=== PATIENT | male | born 1975 | race Two or more races ===

== ENCOUNTER 2016-07-01 17:27 | Emergency (ER) | payer BC ==
[~2016-07-01] VITALS: Ht 162.6 cm; Wt 72.6 kg
[2016-07-01] MEDS ORDERED: Norco 5mg/325mg tab ORAL ONE (18:00)
[2016-07-01] MEDS ORDERED: IBUPROFEN600 MG ORAL (19:03)
[2016-07-01] MEDS ORDERED: NORCO 5-325 TA1 EAC1 ORAL (19:03)
[2016-07-01 19:12] VITALS: BP 132/81
--- NOTE | 2016-07-01 20:59 | Emergency Room Report ---
History of Present Illness General Chief Complaint: Lower Extremity Injury Source: Patient (TIM LITTLE) Present Illness HPI The patient is a 40-year-old male presenting for left ankle pain which began today. The patient states that he was walking his dog, tripped, and felt the left ankle folded underneath him. Pain is described as a 10 out of 10 dull ache and does not radiate from the ankle. The patient denies any numbness or tingling. He is unsure if he has fractured this ankle in the past. The patient states he is unable to bear any weight on this foot. Pain worse with touch. He denies any other symptoms including N, V, F, chills, rash, calf pain (TIM LITTLE) Allergies: Coded Allergies: No Known Allergies (Unverified , 07/01/16) Patient History Past Medical History: see triage record Pertinent Family History: none Reviewed Nursing Documentation: PMH: Agreed, PSxH: Agreed (TIM LITTLE) Nursing Documentation-PMH Past Medical History: No History, Except For (TIM LITTLE) Review of Systems All Other Systems: negative except mentioned in HPI (TIM LITTLE) Physical Exam Vital Signs Date Time Temp Pulse Resp B/P Pulse Ox O2 Delivery O2 Flow Rate FiO2 07/01/16 17:45 98.4 112 16 135/85 100 Room Air Sp02 EP Interpretation: reviewed, normal General Appearance: no apparent distress, alert, GCS 15, non-toxic Head: normocephalic, atraumatic Eyes: bilateral eye PERRL, bilateral eye normal inspection ENT: hearing grossly normal, normal pharynx, no angioedema, normal voice Neck: full range of motion, supple/symm/no masses Musculoskeletal: decreased range of motion, swelling, tender - diffusely over ankle Neurologic: alert, oriented x3, responsive, motor strength/tone normal, sensory intact, speech normal Psychiatric: judgement/insight normal, memory normal, mood/affect normal, no suicidal/homicidal ideation Skin: normal color, no rash, warm/dry, well hydrated Lymphatic: no adenopathy (TIM LITTLE) Procedures Splinting Splinting : Consent: Verbal Location: L ankle Hand-Made Type: plaster Splint: posterior long Pre-Proc Neuro Vasc Exam: normal Post-Proc Neuro Vasc Exam: normal Patient Tolerated: Well Complications: None (TIM LITTLE) Medical Decision Making PA Attestation Dr. Dominguez is my supervising physician. Patient management was discussed with my supervising physician (TIM LITTLE) Diagnostic Impression: Primary Impression: Closed bilateral malleolar fractures ER Course The patient is a 40-year-old male presenting for left ankle pain which began today Ddx considered include but not limited to sprain/strain, fracture, contusion, dislocation Physical exam: No apparent distress Left ankle: There is diffuse nonpitting edema. Limited active range of motion due to pain. There is ecchymosis to medial and lateral malleoli with tenderness to palpation. SILT DP pulse 2+ X-ray of the ankle shows a slight lateral malleoli fracture with soft tissue swelling The patient is given pain medication and will be placed in a short leg posterior with sugar tongue splint. Crutches are provided The patient is advised that he will should not weight bear and needs to followup with PMD as well as orthopedics as soon as possible. Patient was informed he may need surgery. ER precautions are given (TIM LITTLE) ER Course I evaluated this patient in the ED at [facility] with my advanced practice provider (Physician Industrial Technician) colleague, who practices under my general supervision. My impressions concur with the advanced practice provider in regards to their obtained history of present illness, physical exam, general management, diagnosis, and disposition. In particular, I agree with PA-obtained interpretation of imaging, rhythm strip. For the evening and overnight shifts, we do not have the benefit of an in-house Radiologist to review xrays so our interpretation may be limited. Patients are to be discharged only with normal vital signs (or if we discussed a particular exception), a plan for follow-up care, and understand to return to the ED for worsening symptoms. Please see midlevel healthcare providers note for further details. (CHONG DOMINGEUZ M.D.) Other X-Ray Diagnostic Results Other X-Ray Diagnostic Results : X-Ray Ordered: L ankle Date: Jul 01, 2016 EP Interpretation: Yes Findings: no dislocation, other - bi mal fracture with STS Number of Views: 3 PA Scribe Text I am acting as scribe for my supervising physician. My supervising physician's interpretation of the L Ankle xrays are there are There are bimalleolar fracture 's with soft tissue swelling (TIM LITTLE) Last Vital Signs Date Time Temp Pulse Resp B/P Pulse Ox O2 Delivery O2 Flow Rate FiO2 07/01/16 19:16 98.4 07/01/16 19:12 76 17 132/81 100 Room Air Status: improved (TIM LITTLE) Disposition: HOME, SELF-CARE Condition: Improved Scripts Hydrocodone Bit/Acetaminophen 5-325* (NORCO 5-325 TABLET*) 1 Each Tablet 1 TAB ORAL Q6HR Y for For Pain, #10 TAB Prov: TIM LITTLE 07/01/16 Ibuprofen* (MOTRIN*) 600 Mg Tablet 600 MG ORAL Q8H Y for For Pain, #30 TAB 0 Refills Prov: TIM LITTLE.Norma 07/01/16 Referrals: BRENNON CHAUDHRY (PCP) Patient Instructions: Ankle Sprain, Ankle Fracture, Cast or Splint Care Additional Instructions: I discussed my findings with the patient. All questions and concerns have been answered. Treatment and medication compliance have been addressed. I advised the patient that they need to follow up with PMD in 3-5 days. Return to ED if pain remains or worsens, numbness or tingling occurs, new rash is noticed, fever is noticed, or if needed for any reason. Patient verbalized understanding of discharge instructions. The patient is advised that he needs to follow up with orthopedic surgery TIM LITTLE Jul 01, 2016 20:59 CHONG DOMINGUEZ M.D. Jul 03, 2016 20:56
--- NOTE | 2016-07-02 12:27 | Diagnostic Imaging Report ---
Indications: Fall, left ankle injury and pain Technique: 3 views left ankle Findings: Comparison: None Oblique fracture distal fibular diaphysis and metaphysis at and above the ankle joint. Distal fragment demonstrates significant posterior displacement. Transverse fracture through base of minimal LS, mildly distracted. Longitudinal fracture through posterior malleolus, distal fragment demonstrating 1 mm posterior inferior displacement. Asymmetric widening of tibiotalar joint. Surrounding soft tissue swelling. IMPRESSION: Trimalleolar fracture as described Ankle joint disruption
[2016-07-09] MEDS ORDERED: SAXENDA3 MG/0.5 M SQ (14:40)
[2016-07-09] MEDS ORDERED: TRAZODONE HCL50 MG ORAL (14:41)
[2016-07-09] MEDS ORDERED: PANTOPRAZOLE SO40 MG ORAL (14:42)
[2016-07-09] MEDS ORDERED: DICYCLOMINE HCL10 MG PO (14:42)
[2016-07-09] MEDS ORDERED: VENLAFAXINE HC150 MG ORAL (14:44)
== END 2016-07-01 19:25 | disposition home or self-care (01) ==
LOC: EMR 19:00
DX: S82.852A Displaced trimalleolar fracture of left lower leg, initial encounter for closed fracture (principal); W01.0XXA Fall on same level from slipping, tripping and stumbling without subsequent striking against object, initial encounter; Y93.K1 Activity, walking an animal; Y92.89 Other specified places as the place of occurrence of the external cause
CPT/HCPCS: 29505; 99284

== ENCOUNTER → 2016-07-10 | Day surgery (SDC) | payer BC ==
[2016-07-10] VITALS (19 sets, daily range): BP systolic 108–143; BP diastolic 61–91
[~2016-07-10] VITALS: Ht 162.6 cm; Wt 72.6 kg
[~2016-07-10] MED LIST: Bacitracin 50000 Units Vial ONE; Bupivacaine w/Epi 0.5% 30ml Vial INJ ONE; D5 1/2NS 1,000 ML IV SCH; DICYCLOMINE HCL10 MG PO; Dexamethasone 4mg/ml vial ONE; HYDROmorphone 1mg/ml Carpuject SUBQ PRN; IBUPROFEN600 MG ORAL; Ketorolac 30mg Inj IV PRN; LORazepam Inj 2mg/ml 1ml IV PRN; LORazepam Inj 2mg/ml 1ml ONE; NORCO 5-325 TA1 EAC1 ORAL; Norco 5mg/325mg tab ORAL PRN; PANTOPRAZOLE SO40 MG ORAL; SAXENDA3 MG/0.5 M SQ; TRAZODONE HCL50 MG ORAL; Tylenol #3 tab (300mg/30mg) ORAL PRN; VENLAFAXINE HC150 MG ORAL; ceFAZolin 1gm in D5W 55ml IVP ONE; celeBREX 200mg Cap **SURGERY PATIENTS ONLY ORAL ONE; oxyCONTIN 20mg tab ORAL ONE
--- NOTE | 2016-07-10 07:01 | Pre-Procedure Note/Attestation ---
Pre-Procedure Note/Attestation Complete Prior to Procedure Planned Procedure: left Procedure Narrative: left ankle ORIF Indications for Procedure Pre-Operative Diagnosis: Left ankle fracture Attestation I attest that I discussed the nature of the procedure; its benefits; risks and complications; and alternatives (and the risks and benefits of such alternatives ), prior to the procedure, with the patient (or the patient's legal auto service representative). I attest that, if there was a reasonable possibility of needing a blood transfusion, the patient (or the patient's legal auto service representative) was given the [facility] standardized written summary, pursuant to the Jeff Matilde Blood Safety Act ([place] Health and Safety Code # 1645, as amended). I attest that I re-evaluated the patient just prior to the surgery and that there has been no change in the patient's H&P, except as documented below:NONE THIAGO ALMONTE Jul 10, 2016 07:01
--- NOTE | 2016-07-10 07:33 | Anethesia Preoperative Eval ---
Anesthesia Pre-op PMH/ROS General Date of Evaluation: Jul 10, 2016 Time of Evaluation: 06:55 Anesthesiologist: Konstantin ASA Score: ASA 1 Mallampati Score Class I : Soft palate, uvula, fauces, pillars visible Class II: Soft palate, uvula, fauces visible Class III: Soft palate, base of uvula visible Class IV: Only hard plate visible Mallampati Classification: Class II Surgeon: Timoteo Diagnosis: Ankle Fracture Surgical Procedure: ORIF Ankle Anesthesia History: none Family History: no anesthesia problems Allergies: Coded Allergies: No Known Allergies (Unverified , 07/01/16) Medications: see eMAR Past Medical History Cardiovascular: Denies: CAD, HTN, HI, arrhythmia, other, valve dz Pulmonary: Denies: COPD, HERMES, asthma, other Gastrointestinal/Genitourinary: Denies: CRI, ESRD, GERD, other Neurologic/Psychiatric: Denies: CVA, TIA, dementia, depression/anxiety, other Endocrine: Denies: DM, hypothyroidism, other, steroids HEENT: Denies: [place] (L), [place] (R), cataract (L), cataract (R), glaucoma, other Hematology/Immune: Denies: DVT, anemia, bleeding disorder, other Musculoskeletal/Integumentary: Denies: DDD, DJD, OA, RA, edema, other Anesthesia Pre-op Phys. Exam Physician Exam Last Vital Signs Date Time Temp Pulse Resp B/P Pulse Ox O2 Delivery O2 Flow Rate FiO2 07/10/16 05:46 97.7 80 18 113/70 97 Room Air Constitutional: NAD Neurologic: CN 2-12 intact Cardiovascular: RRR Respiratory: CTA Gastrointestinal: S/NT/ND Airway Exam Mallampati Score: Class II ALESHA PRASAD M.D. Jul 10, 2016 07:33
--- NOTE | 2016-07-10 08:26 | Immediate Post-Op Evaluation ---
Immediate Post-Op Evalulation Immediate Post-Op Evalulation Procedure: Ankle ORIF Date of Evaluation: Jul 10, 2016 Time of Evaluation: 08:45 IV Fluids: 200 Blood Products: 0 Estimated Blood Loss: 0 Urinary Output: 0 Blood Pressure Systolic: 120 Blood Pressure Diastolic: 70 Pulse Rate: 87 Respiratory Rate: 20 O2 Sat by Pulse Oximetry: 99 Temperature (Fahrenheit): 98 Pain Score (1-10): 2 Nausea: No Vomiting: No Complications na Patient Status: awake Hydration Status: adequate Drug: ancef 1G Given Within 1 Hr of Incision: Yes Time Given: 07:05 ALESHA PRASAD M.D. Jul 10, 2016 08:26
--- NOTE | 2016-07-10 08:27 | 48 Hour Post Anesthesia Eval ---
Post Anesthesia Evaluation Procedure: Ankle ORIF Date of Evaluation: Jul 10, 2016 Time of Evaluation: 09:45 Blood Pressure Systolic: 120 0: 70 Pulse Rate: 80 Respiratory Rate: 20 Temperature (Fahrenheit): 98 O2 Sat by Pulse Oximetry: 99 Airway: patent Nausea: No Vomiting: No Pain Intensity: 2 Hydration Status: adequate Cardiopulmonary Status: stable Mental Status/LOC: patient returned to baseline Follow-up Care/Observations: na Post-Anesthesia Complications: na Follow-up care needed: N/A ALESHA PRASAD M.D. Jul 10, 2016 08:27
--- NOTE | 2016-07-10 08:28 | Brief Operative Note ---
Immediate Post Operative Note Operative Note Chief Complaint: left ankle pain Pre-op Diagnosis: left ankle fracture Procedure: left ankle ORIF Post-op Diagnosis: same as pre-op Findings: consistent w/pre-op dx studies Surgeon: MD Timoteo Charter Pilot: FORTUNATO Montero Anesthesiologist: MD Konstantin Anesthesia: general Specimen: none Complications: none Condition: stable Estimated Blood Loss: minimal Drains: none Implant(s) used?: Yes - MARIA DE JESUS Becerra Jul 10, 2016 08:28
[2016-07-10] MEDS: Hydromorphone 0.5mg/0.5ml inj IVP PRN ×4 (08:55→11:46)
[2016-07-10] MEDS: fentaNYL 100 mcg/2 mL IV PRN ×4 (09:02→09:53)
--- NOTE | 2016-07-10 11:35 | Diagnostic Imaging Report ---
Indication: Fracture, intraoperative Technique: Digital intraoperative images Comparison: 07/01/2016 Findings: Intraoperative images document surgical repair of previously demonstrated distal fibular and medial malleolar fractures. Impression: Intraoperative images, as described
--- NOTE | 2016-07-11 08:49 | Operative Note - Dictated ---
DATE OF OPERATION: 07/10/2016 PREOPERATIVE DIAGNOSIS: Left ankle trimalleolar displaced fracture. POSTOPERATIVE DIAGNOSIS: Left ankle trimalleolar displaced fracture. PROCEDURE: 1. Left ankle open reduction and internal fixation of the fibula with 1/3rd tubular plate with 2 lag screws and 5 additional screws in the plate. 2. Open reduction and internal fixation of the medial malleolus with 2 partially threaded cancellous 4.0 cancellous screws. SURGEON: Eddi Mahmood M.D. LOADER ENGINEER: Yuni Montero PA-C. ANESTHESIOLOGIST: Dr. Pryor. ANESTHESIA: General LMA anesthesia. EBL: Less than 20 mL. COMPLICATIONS: None. BRIEF HISTORY: The patient is a very pleasant 40-year-old gentleman, who sustained injury to the left ankle. He was evaluated and was noted to have a displaced trimalleolar ankle fracture. After full discussion of the risks and benefits of the surgery and complications which would including infection, bleeding, neurovascular complication, possible malunion, possible nonunion, possible need for further surgery, possibility of continued pain, posttraumatic arthritis, other complication may associated with it, he opted for surgical treatment as described above. OPERATIVE PROCEDURE: The patient was brought to the operating table and was placed supine. All pressure points well padded. General LMA anesthesia was induced. The left ankle was prepped and draped in usual sterile fashion and was exsanguinated and tourniquet was inflated to 275 mmHg. The area of the incision was injected with 0.5% Marcaine with epinephrine. The incision was made over lateral aspect of the ankle. The incision was taken down to the fibula. Dissection was taken proximal and distally and the fibula was isolated. Care was given to protect the neurovascular structures. This was a long oblique fracture and the fracture was reduced and 2 compression lag screws were placed in from anterior to posterior encompassed the fracture site. This held the fracture anatomically. Subsequently, a 6 hole 1/3 tubular plate was placed and 3 bicortical screws proximally and 1 bicortical screw distally and a fully threaded cancellous screw distally was used to fix the plate. Once this was completed, the image intensifier was brought in and the position of the screws and plate were checked and appeared to be perfect. The fibular fracture was reduced anatomically to length with good rotation and no significant displacement. At this point, care was given in the medial malleolar site. The medial malleus was slightly displaced and the medial joint space was widened. At this point, an incision was made over the medial malleolus. The medial malleolus was reduced anatomically. The periosteum was taken out of the fracture site. Once this was reduced, 2 partially threaded cancellous screws were placed in without any complications. This compressed the fracture site very well and held it in place. Wounds were thoroughly irrigated using copious amount of fluid. Final x-rays were obtained and all screws were in excellent position and the mortise was recreated and was equal. The posterior malleolus was reduced dorsiflexion of the ankle. At this point, all wounds were thoroughly irrigated using copious amount of fluid. The incision sites were closed using 2-0 Vicryl sutures. Skin was closed using 3-0 Monocryl suture. The patient was placed in a short leg splint and with a sugar-tong and was awakened and was taken to recovery room in stable condition. All lap counts and instrument counts were correct. Eddi Mahmood M.D. DR: DAGOBERTO JOB#: [id number] CC:
== END | disposition home or self-care (01) ==
LOC: SUR 05:16
DX: S82.852A Displaced trimalleolar fracture of left lower leg, initial encounter for closed fracture (principal); X58.XXXA Exposure to other specified factors, initial encounter; Y92.89 Other specified places as the place of occurrence of the external cause; Y99.9 Unspecified external cause status; M25.50 Pain in unspecified joint; R35.1 Nocturia
CPT/HCPCS: 76001; 94003; 94150; J2405